=== PATIENT | female | born 1940 | race Caucasian/White ===

== ENCOUNTER 2017-02-02 14:05 | Day surgery (SDC) | payer BC ==
[~2017-02-02] VITALS: Ht 160 cm; Wt 59.0 kg
[~2017-02-02 14:05] MED LIST: ADVAIR 250/501 DISK IH; ASPIRIN81 M2 PO; PLAVIX75 MG PO; SYSTANE 0.3-0.1 EACH BOTH EYES; ZANTAC150 MG PO
== END 2017-02-02 16:50 | disposition home or self-care (01) ==
LOC: CATH 14:05
DX: I87.8 Other specified disorders of veins (principal); C18.9 Malignant neoplasm of colon, unspecified; J45.909 Unspecified asthma, uncomplicated; Z79.82 Long term (current) use of aspirin; Z79.02 Long term (current) use of antithrombotics/antiplatelets; E78.00 Pure hypercholesterolemia, unspecified; Z86.73 Personal history of transient ischemic attack (TIA), and cerebral infarction without residual deficits
CPT/HCPCS: C1752; C1894; J0690; J1644; J2250; J3010; S0020

== ENCOUNTER → 2017-05-11 | Outpatient (CLI) | payer BC, OTHER | END | disposition home or self-care (01) | LOC: AMB 09:30 | DX: Z45.2 Encounter for adjustment and management of vascular access device (principal); I87.8 Other specified disorders of veins; Z92.21 Personal history of antineoplastic chemotherapy ==